=== PATIENT | male | born 1970 | race Caucasian/White ===

== ENCOUNTER 2019-03-24 20:59 | Emergency (ER) | payer OTHER ==
[2019-03-24] MEDS: KETOROLAC 60 MG INJ IM (23:38)
== END 2019-03-25 00:27 | disposition home or self-care (01) ==
LOC: E/R 03-25 00:27
DX: R51 Headache (principal); R94.31 Abnormal electrocardiogram [ECG] [EKG]; R40.2142 Coma scale, eyes open, spontaneous, at arrival to emergency department; R40.2252 Coma scale, best verbal response, oriented, at arrival to emergency department; R40.2362 Coma scale, best motor response, obeys commands, at arrival to emergency department
CPT/HCPCS: 70450; 93005; 96372; 99285-25